=== PATIENT | female | born 1960 | race Native Hawaiian/Other Pacific Islander ===

== ENCOUNTER 2017-10-26 19:12 | Emergency (ER) | payer OTHER ==
[~2017-10-26] VITALS: Ht 154.9 cm; Wt 158.8 kg
[2017-10-26 19:50] LABS: PLATELET COUNT 207 K/uL (152-353)
[2017-10-26 19:58] LABS: POTASSIUM 2.3 mmol/L (3.6-5.2)
[2017-10-26 20:30] VITALS: BP 138/59; TEMP 97.8
[2017-10-27] MEDS ORDERED: AMMONIUM LAC12 % EX (07:32)
[2017-10-27] MEDS ORDERED: DIPH25CA90 PO (07:34)
[2017-10-27] MEDS ORDERED: BIOTENE DRY MOUTH OR MT (07:35)
[2017-10-27] MEDS ORDERED: CHLORTHALID25 MG PO (07:35)
[2017-10-27] MEDS ORDERED: CLIN300C PO (07:38)
[2017-10-27] MEDS ORDERED: FLONASE AL50 MCG/ACT (07:39)
[2017-10-27] MEDS ORDERED: DULO30CA PO (07:39)
[2017-10-27] MEDS ORDERED: GABA300C2 PO (07:40)
[2017-10-27] MEDS ORDERED: LACTSYP31 PO (07:42)
[2017-10-27] MEDS ORDERED: IBUPROFEN 200200 MG PO (07:42)
[2017-10-27] MEDS ORDERED: FURO40TA93 PO (07:43)
[2017-10-27] MEDS ORDERED: MAGICMOUTH PO (07:44)
[2017-10-27] MEDS ORDERED: METO-837 PO (07:45)
[2017-10-27] MEDS ORDERED: OXYCONTIN15 MG PO (07:47)
[2017-10-27] MEDS ORDERED: MIRALAX3350 N1 PO (07:49)
[2017-10-27] MEDS ORDERED: ALBUTERO1 IN (07:54)
[2017-10-27] MEDS ORDERED: [UNRECOGNIZED DRUG - OTHER] NAS (07:59)
[2017-10-27] MEDS ORDERED: SIMV20TA2 PO (08:00)
[2017-10-27] MEDS ORDERED: TIZA4TAB5 PO (08:01)
[2017-10-27] MEDS ORDERED: TRIA0.1C19 TOP (08:04)
[2017-10-27] MEDS ORDERED: TRAM50TA PO (08:05)
[2017-10-27] MEDS ORDERED: POTASSIU PO (08:13)
[2017-10-27] MEDS ORDERED: POT CHLORIDE10 ME1 PO (08:24)
[2017-10-31] MEDS ORDERED: DULO30CA PO ×2 (17:03)
[2017-10-31] MEDS ORDERED: POTASSIUM CHLORIDE PO (17:03)
[2017-10-31] MEDS ORDERED: LIDOPATCH TOP (17:03)
[2017-10-31] MEDS ORDERED: DICL1GEL2 TOP (17:03)
[2017-10-31] MEDS ORDERED: HYDR25TA60 PO (17:04)
== END 2017-10-26 20:30 | disposition other institution (70) ==
LOC: ED 19:12
PROVIDERS: Emergency Medicine
DX: F28 Other psychotic disorder not due to a substance or known physiological condition (principal); F20.89 Other schizophrenia; Z04.6 Encounter for general psychiatric examination, requested by authority
CPT/HCPCS: 36415; 80053; 85027; 93005; 99285